=== PATIENT | female | born 1990 | race Caucasian/White ===

== ENCOUNTER 2019-11-16 08:40 | Emergency (ER) | payer SELFPAY ==
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
[2019-11-16 08:36] VITALS: PULSE 81; RESP 18; TEMP 36.9; O2SAT 97
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
--- NOTE | 2019-11-16 08:50 | ECG_ITS ---
Measurements Intervals [place] Rate: 85 P: 42 HI: 156 QRS: -9 QRSD: 89 T: 2 QT: 348 QTc: 415 Interpretive Statements SINUS RHYTHM VOLTAGE CRITERIA FOR LVH POOR R WAVE PROGRESSION, ANTERIOR LEADS MINIMAL Q WAVES- HIGH LATERAL LEADS BORDERLINE T WAVE ABNORMALITY- INFERIOR LEADS BORDERLINE ECG Electronically Signed On 11-16-2019 8:52:22 CDT by Jose Guadalupe Solis D.O.
[2019-11-16 09:06] LABS: Basophils Absolute Auto 0.1 K/mm3 (0.0-0.1); Basophils Percent Auto 1.1 % (0.2-1.2); Eosinophils Absolute Auto 0.2 K/mm3 (0-0.3); Eosinophils Percent Auto 1.8 % (0-4.4); Hematocrit 45.5 % (37.0-47.0); Hemoglobin 14.8 g/dL (12.0-15.0); Immature Granulocyte Absolute 0.04 K/mm3 (0.00-0.031); Immature Granulocyte Percent A 0.4 % (0-0.5); Lymphocytes Absolute Auto 1.75 K/mm3 (0.9-3.2); Lymphocytes Percent Auto 18.2 % (18.3-44.2); Mean Corpuscular HGB Conc 32.5 g/dl (32-36); Mean Corpuscular Hemoglobin 28.1 pg (26-34); Mean Corpuscular Volume 86.5 fl (80-100); Mean Platelet Volume 9.8 fl (7.4-10.4); Monocytes Absolute Auto 0.7 K/mm3 (0.1-0.6); Monocytes Percent Auto 7.1 % (2.6-8.5); Neutrophils Absolute Auto 6.9 K/mm3 (1.3-6.7); Neutrophils Percent Auto 71.4 % (45.5-73.1); Platelet Count Result 397 k/mm3 (150-375); Red Blood Count 5.26 M/mm3 (4.2-5.4); Red Cell Distribution Width 14.1 % (11.5-14.5); White Blood Count 9.6 K/mm3 (4.5-10.0)
[2019-11-16 09:18] LABS: Anion Gap 8 mmol/L (8-16); Blood Urea Nitrogen 11 mg/dL (7-17); Calcium 8.8 mg/dL (8.4-10.2); Carbon Dioxide 23 mmol/L (22-30); Chloride 108 mmol/L (98-107); Estimated CRCL calculation 106 ml/min; Estimated Glomerular Filt Rate > 60; Glucose 105 mg/dL (65-105); Potassium 4.1 mmol/L (3.4-5.0); Sodium 139 mmol/L (137-145)
[2019-11-16] MEDS: KETOROLAC 30 MG/ML VIAL (*BKC) IV PUSH (09:33)
[2019-11-16] MEDS: CYCLOBENZAPRINE HCL 10 MG TABLET PO (11:39)
[2019-11-16 11:40] VITALS: BP 116/73; PULSE 81; RESP 21; O2SAT 98
== END 2019-11-16 11:42 | disposition home or self-care (01) ==
PROVIDERS: Emergency Provider Emergency Medicine
DX: S16.1XXA Strain of muscle, fascia and tendon at neck level, initial encounter (principal); V47.5XXA Car driver injured in collision with fixed or stationary object in traffic accident, initial encounter; F41.8 Other specified anxiety disorders
CPT/HCPCS: 36415; 72040; 73502; 80048; 81025; 85025; 93005; 96374; 99284; A9270; J1885

== ENCOUNTER 2019-12-13 08:10 | Emergency (ER) | payer SELFPAY ==
[2019-12-13 08:33] VITALS: BP 114/71; PULSE 80; RESP 16; TEMP 36.9; O2SAT 99
--- NOTE | 2019-12-13 09:22 | ED.URI ---
HPI - URI/Sore Throat General Chief Complaint: Upper Respiratory Infection Stated Complaint: sore throat Time Seen by Provider: 12/13/19 08:50 Source: patient and RN notes reviewed Mode of arrival: ambulatory Limitations: no limitations History of Present Illness HPI Narrative: Patient presents today with a 2-day history of sore throat, fever up to 102, right ear pain. Currently rates her sore throat tube/tube. She is currently on a course of Cipro in preparation for getting all of her teeth extracted for dentures. History of frequent strep throat. She has been taking 800 mg of ibuprofen twice daily without relief of symptoms. MD elicited complaint: fever and sore throat Related Data Home Medications Medication Instructions Recorded Confirmed aripiprazole [Abilify] 2 mg PO DAILY 12/13/19 12/13/19 atorvastatin [Lipitor] 20 mg PO DAILY 12/13/19 12/13/19 ciprofloxacin HCl [Cipro] 500 mg PO Q12H 12/13/19 12/13/19 clonazepam [Klonopin] 1 mg PO DAILY 12/13/19 12/13/19 dextroamphetamine-amphetamine 15 mg PO BID 12/13/19 12/13/19 [Adderall XR] fluoxetine [Prozac] 40 mg PO DAILY 12/13/19 12/13/19 ibuprofen 800 mg PO TID 12/13/19 12/13/19 pantoprazole [Protonix] 40 mg PO DAILY 12/13/19 12/13/19 sucralfate [Carafate] 1 g PO BID 12/13/19 12/13/19 Allergies Allergy/AdvReac Type Severity Reaction Status Date / Time clindamycin Allergy Unknown Verified 12/13/19 08:50 iohexol Allergy Hives Verified 12/13/19 08:50 [From contrast - CT, X-RAY] metronidazole [From Flagyl] Allergy Unknown Verified 12/13/19 08:50 morphine Allergy Hypotension Verified 12/13/19 08:50 Penicillins Allergy Anaphylactic Verified 12/13/19 08:50 Shock sulfamethoxazole Allergy Unknown Verified 12/13/19 08:50 [From Bactrim] trimethoprim [From Bactrim] Allergy Unknown Verified 12/13/19 08:50 Review of Systems Review of Systems: Narrative: CONSTITUTIONAL: Denies body aches, chills, or sweats.+ Fever EYES: Denies visual changes, redness, or discharge. ENT: Denies rhinorrhea, congestion.+ Sore throat, right ear pain CARDIOVASCULAR: Denies chest pain, palpitations, or edema. RESPIRATORY: Denies cough or dyspnea. GASTROINTESTINAL: Denies abdominal pain, nausea, vomiting, or diarrhea. GENITOURINARY: Denies dysuria or hematuria. SKIN: Denies rash, itching, or wounds. MUSCULOSKELETAL: Denies back pain, joint pain, or myalgia. NEUROLOGIC: Denies headache, numbness, tingling, or weakness. PSYCH: Denies depression or anxiety. [facility] Past Medical History Medical History (Updated 12/13/19 @ 09:24 by Denia Good, SPOOLER, ) Depression with anxiety Social History Social History Gender identity (if verbalized by the patient): Female Comments At time of signature, I have reviewed and agree with nursing past medical, surgical, social and family history unless otherwise noted. Please see nursing chart for further information. There is no relevant family history pertinent to the presenting complaint Exam Narrative: Exam Narrative: GENERAL: Well-appearing, well-nourished, and in no acute distress. HEAD: Normocephalic, atraumatic. EYES: EOMI. No redness or drainage. Conjunctivae normal. ENT: Mucous membranes pink and moist. Nares clear. No rhinorrhea. TMs normal bilaterally. Throat erythematous and mildly edematous with moderate white exudate. Uvula midline. NECK: Normal AROM. Supple. Bilateral anterior cervical chain lymphadenopathy. CHEST: No respiratory distress. Clear to auscultation. HEART: Regular rate and rhythm. No murmur appreciated. Normal peripheral pulses. EXTREMITIES: Normal range of motion. No edema. SKIN: Warm, dry, no rash. Capillary refill normal. Normal skin turgor. NEURO: No focal deficits. Alert and oriented x3. Gait steady. PSYCH: Normal affect. No signs of depression or anxiety. Course Vital Signs Vital signs: Vital Signs Temperature 98.5 F
== END 2019-12-13 09:26 | disposition home or self-care (01) ==
PROVIDERS: Emergency Provider Nurse Practitioner
DX: J02.9 Acute pharyngitis, unspecified (principal)
CPT/HCPCS: 87081; 87804; 87880; 99213; G0463

== ENCOUNTER 2020-04-09 15:45 | Emergency (ER) | payer OTHER, SELFPAY ==
--- NOTE | ~2020-04-09 | XR_ITS ---
EXAMINATION: XR foot LT min 3V DATE: 04/09/2020 16:24 INDICATION: Left foot pain. TECHNIQUE: 4 views of left foot were obtained. COMPARISON: None. FINDINGS: Bone alignment is normal. No fracture. There is mild osteoarthritis of first metatarsophala ngeal joint. There is an enthesophyte at plantar aspect of calcaneal tuberosity. IMPRESSION: 1. Mild osteoarthritis of first metatarsophalangeal joint. Reviewed, dictated and finalized at location A. CIENTIST
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
[2020-04-09 16:00] VITALS: BP 124/68; PULSE 71; RESP 12; TEMP 36.3; O2SAT 98
--- NOTE | 2020-04-09 16:12 | PC.NURSE ---
stated was supposed to work today but unable d/t foot pain and requested note.
== END 2020-04-09 16:40 | disposition home or self-care (01) ==
PROVIDERS: Emergency Provider Nurse Practitioner Family
DX: M19.072 Primary osteoarthritis, left ankle and foot (principal); F41.9 Anxiety disorder, unspecified; F32.9 Major depressive disorder, single episode, unspecified; E78.00 Pure hypercholesterolemia, unspecified
CPT/HCPCS: 73630; 99213; G0463

== ENCOUNTER 2020-07-15 13:13 | Emergency (ER) | payer OTHER, SELFPAY ==
[2020-07-15 13:24] VITALS: BP 118/70; PULSE 86; RESP 16; TEMP 36.2; O2SAT 99
--- NOTE | 2020-07-15 13:29 | ED.URI ---
HPI - URI/Sore Throat General Chief Complaint: Upper Respiratory Infection Stated Complaint: cold/flu symptoms Time Seen by Provider: 07/15/20 13:35 Source: patient and RN notes reviewed Mode of arrival: ambulatory Limitations: no limitations History of Present Illness HPI Narrative: 30-year-old female presents with concern for 2-day history of sore throat, chills, headache. Reports she is taking ibuprofen with little relief of headache. She reports she has not been diagnosed with Covid in the past, has not been vaccinated. She denies cough, shortness of breath, loss of sense of taste or smell, body aches, sweats. Denies any other interventions. Denies known sick contacts. MD elicited complaint: sore throat Related Data Home Medications Medication Instructions Recorded Confirmed aripiprazole [Abilify] 2 mg PO DAILY 12/13/19 07/15/20 atorvastatin [Lipitor] 20 mg PO DAILY 12/13/19 07/15/20 clonazepam [Klonopin] 1 mg PO BID 12/13/19 07/15/20 dextroamphetamine-amphetamine 30 mg PO BID 12/13/19 07/15/20 [Adderall XR] fluoxetine [Prozac] 40 mg PO DAILY 12/13/19 07/15/20 pantoprazole [Protonix] 40 mg PO DAILY 12/13/19 07/15/20 sucralfate [Carafate] 1 g PO BID 12/13/19 07/15/20 Allergies Allergy/AdvReac Type Severity Reaction Status Date / Time clindamycin Allergy Unknown Verified 07/15/20 13:36 iohexol Allergy Hives Verified 07/15/20 13:36 [From contrast - CT, X-RAY] metronidazole [From Flagyl] Allergy Unknown Verified 07/15/20 13:36 morphine Allergy Hypotension Verified 07/15/20 13:36 Penicillins Allergy Anaphylactic Verified 07/15/20 13:36 Shock sulfamethoxazole Allergy Unknown Verified 07/15/20 13:36 [From Bactrim] trimethoprim [From Bactrim] Allergy Unknown Verified 07/15/20 13:36 Review of Systems Review of Systems: Narrative: CONSTITUTIONAL: Denies malaise, sweats, or fever. EYES: Denies visual changes, redness, or discharge. ENT: Reports rhinorrhea, sore throat. Denies congestion, sinus pain, otalgia CARDIOVASCULAR: Denies chest pain, palpitations, or edema. RESPIRATORY: Reports cough. Denies dyspnea. GASTROINTESTINAL: Denies abdominal pain, nausea, vomiting, diarrhea SKIN: Denies rash or itching. MUSCULOSKELETAL: Denies myalgia. NEUROLOGIC: Reports headache. All systems reviewed & are unremarkable except as noted in HPI and below PMFSH Past Medical History Medical History (Updated 07/15/20 @ 13:52 by Radha Elder NP) Depression with anxiety Social History Social History Gender identity (if verbalized by the patient): Female Comments At time of signature, agree with nursing past medical, surgical, social and family history. There is no relevant family history pertinent to the presenting complaint Exam Narrative: Exam Narrative: GENERAL: Well-appearing, well-nourished, and in no acute distress. HEAD: Normocephalic EYES: PERRLA, conjunctivae clear ENT: Nares clear, turbinates edematous and erythematous, clear discharge. Mucous membranes moist. TM pearly mccray with dull light reflex bilaterally; no tragal tenderness. Oropharynx erythematous without lesions. Tonsils enlarged and without exudate, no drooling, no hoarseness, no trismus, uvula midline. NECK: Supple. No lymphadenopathy CHEST: Clear to auscultation, breath sounds equal. No wheezing, rhonchi, rales, or stridor. No respiratory distress, speaks in full sentences. HEART: Regular rate and rhythm. No murmur heard. SKIN: Warm, dry, no rash. NEURO: Alert and oriented x3. PSYCH: Normal mood and affect Course Course Emergency Course: Patient is aware of diagnosis, understands and agrees to treatment plan. Anticipatory guidance given. Patient agrees to follow-up as directed and is aware of reasons to seek care at the emergency department. Portions of this record may have been created with voice recognition software Vital Signs Vital signs: Vital Signs Temperature 9
--- NOTE | 2020-07-15 15:08 | PC.NURSE ---
1419-Toan garcia called for [employer] p[employer] pickup.
[2020-07-16 18:26] LABS: SARS-CoV-2 RNA PCR Negative
== END 2020-07-15 14:17 | disposition home or self-care (01) ==
PROVIDERS: Emergency Provider Nurse Practitioner
DX: J06.9 Acute upper respiratory infection, unspecified (principal); Z20.822 Contact with and (suspected) exposure to COVID-19; F41.9 Anxiety disorder, unspecified; F32.9 Major depressive disorder, single episode, unspecified
CPT/HCPCS: 87081; 87426; 87880; 99213; C9803; G0463; U0003; U0005

== ENCOUNTER 2020-08-29 16:15 | Emergency (ER) | payer OTHER, SELFPAY ==
--- NOTE | ~2020-08-29 | XR_ITS ---
EXAMINATION: XR forearm RT 2V DATE: 08/29/2020 16:40 INDICATION: Right forearm injury and pain. TECHNIQUE: 2 views of right forearm were obtained. COMPARISON: None. FINDINGS: Bone alignment is normal. No fracture. Joint spaces are well maintained. There is no elbow joint effusion. IMPRESSION: 1. Normal right forearm. Reviewed, dictated and finalized at location A. IMPRESSION: 1. Normal right forearm.
[2020-08-29 16:24] VITALS: BP 121/81; PULSE 77; RESP 16; TEMP 36.8; O2SAT 100
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
[2020-08-29] MEDS: IBUPROFEN 400 MG TABLET 800 MG PO (16:49)
== END 2020-08-29 17:10 | disposition home or self-care (01) ==
PROVIDERS: Emergency Provider Registered Nurse
DX: M79.89 Other specified soft tissue disorders (principal); S50.11XA Contusion of right forearm, initial encounter; W23.0XXA Caught, crushed, jammed, or pinched between moving objects, initial encounter
CPT/HCPCS: 73090; 99213; A9270; G0463